=== PATIENT | male | born 1950 | race Caucasian/White ===

== ENCOUNTER 2017-06-03 23:32 | Emergency (ER) | payer OTHER ==
[2017-06-04 00:03] VITALS: TEMP 98.2; BMI 31.1
--- NOTE | 2017-06-04 00:59 | PDOC ---
History of Present Illness - General History Source: Patient Exam Limitations: No Limitations - History of Present Illness Initial Comments: 06/04/17 01:47 The patient is a 66 year old male, with no significant past medical history who presents to the emergency department with multiple complaints s/p fall today. Patient states he slipped and fell down 4 steps at [place]. Patient reports hitting his head and the L side of his body. Patient reports pain to L side of head, L trunk, L hip and L leg. Patient denies LOC, nausea or lightheadedness. Patient took 2 tylenols prior to arrival with no relief. Patient presents to the ED because his pain has progressively worsened. He denies chest pain, headache or dizziness. He denies fever, chills, abdominal pain, nausea, vomit, diarrhea or constipation. He denies dysuria, frequency, urgency or hematuria. Allergies: NKA Past surgical history: None Social history: None PCP: None <Berenice Galvan - Last Filed: 06/04/17 01:47> - General History Source: Patient, Family <Randy Mendoza - Last Filed: 06/04/17 02:56> - General Chief Complaint: Injury Stated Complaint: FALL INJURY Time Seen by Provider: 06/04/17 00:59 Past History <Berenice Galvan - Last Filed: 06/04/17 01:47> - Psycho/Social/Smoking Cessation Hx Suicidal Ideation: No Smoking History: Never smoked Have you smoked in the past 12 months: No Information on smoking cessation initiated: No Hx Alcohol Use: No Drug/Substance Use Hx: No <Randy Mendoza - Last Filed: 06/04/17 02:56> - Past Medical History Allergies/Adverse Reactions: Allergies Allergy/AdvReac Type Severity Reaction Status Date / Time No Known Allergies Allergy Verified 06/03/17 23:48 Home Medications: Ambulatory Orders Glipizide [Glipizide ER] 2 mg PO DAILY 06/04/17 Ibuprofen 800 mg PO TID #30 tablet 06/04/17 Metformin HCl [Glucophage] 1,000 mg PO BID 06/04/17 Methocarbamol [Robaxin -] 500 mg PO TID #30 tablet 06/04/17 Oxycodone HCl/Acetaminophen [Percocet 5-325 mg Tablet] 1 - 2 tab PO Q6H #20 tablet MDD 4 06/04/17 Review of Systems - Review of Systems Able to Perform ROS?: Yes Comments:: 06/04/17 01:47 GENERAL/CONSTITUTIONAL: No fever or chills. No weakness. HEAD, EYES, EARS, NOSE AND THROAT: No change in vision. No ear pain or discharge. No sore throat. GASTROINTESTINAL: No nausea, vomiting, diarrhea or constipation. GENITOURINARY: No dysuria, frequency, or change in urination. CARDIOVASCULAR: No chest pain or shortness of breath. RESPIRATORY: No cough, wheezing, or hemoptysis. MUSCULOSKELETAL: +L trunk, L hip and L leg. No joint or muscle swelling or pain. No neck or back pain. SKIN: No rash NEUROLOGIC: No headache, vertigo, loss of consciousness, or change in strength/ sensation. ENDOCRINE: No increased thirst. No abnormal weight change. HEMATOLOGIC/LYMPHATIC: No anemia, easy bleeding, or history of blood clots. ALLERGIC/IMMUNOLOGIC: No hives or skin allergy. <Berenice Galvan - Last Filed: 06/04/17 01:47> *Physical Exam - Vital Signs Last Vital Signs Temp Pulse Resp BP Pulse Ox 98.2 F 82 20 122/70 98 06/03/17 23:48 06/03/17 23:48 06/03/17 23:48 06/03/17 23:48 06/03/17 23:48 - Physical Exam Comments: 06/04/17 01:47 GENERAL: Awake, alert, and fully oriented, in no acute distress HEAD: No signs of trauma EYES: No raccoon eyes or arcos signs. PERRLA, EOMI, sclera anicteric, conjunctiva clear ENT: Auricles normal inspection, hearing grossly normal, nares patent, oropharynx clear without exudates. Moist mucosa NECK: Normal ROM, supple, no lymphadenopathy, JVD, or masses LUNGS: No flail chest. Breath sounds equal, clear to auscultation bilaterally. No wheezes, and no crackles HEART: Regular rate and rhythm, normal S1 and S2, no murmurs, rubs or gallops ABDOMEN: Soft, nontender, normoactive bowel sounds. No guarding, no rebound. No masses EXTREMITIES: Normal range of motion, no edema. No clubbing or cyanosis. No cords, erythema, or tenderness. No pelvic rock. No bony crepitus. No gross deformities of L leg. +Tender at the posterior and lateral L sided ribs. NEUROLOGICAL: Cranial nerves II through XII grossly intact. Normal speech, normal gait SKIN: Warm, Dry, normal turgor, no rashes or lesions noted. <Berenice Galvan - Last Filed: 06/04/17 01:47> - Vital Signs Last Vital Signs Temp Pulse Resp BP Pulse Ox 98.2 F 82 20 122/70 98 06/03/17 23:48 06/03/17 23:48 06/03/17 23:48 06/03/17 23:48 06/03/17 23:48 <Randy Mendoza - Last Filed: 06/04/17 02:56> ED Treatment Course - Medications Given in the ED: ED Medications Discontinued Medications Generic Name Dose Route Start Last Admin Trade Name Freq PRN Reason Stop Dose Admin Morphine Sulfate 6 mg 06/04/17 01:02 06/04/17 01:31 Morphine Injection - IM 06/04/17 01:03 6 mg ONCE ONE Administration <Berenice Galvan - Last Filed: 06/04/17 01:47> Medical Decision Making - Medical Decision Making 06/04/17 02:56 Dr. Mendoza: The scribe's documentation has been prepared under my direction and personally reviewed by me in its entirery. I confirm that the note above accurately reflects all work, treatment, procedures, and medical decision making performed by me. <Randy Mendoza - Last Filed: 06/04/17 02:56> *DC/Admit/Observation/Transfer - Attestations Scribe Attestion: 06/04/17 01:48 Documentation prepared by Berenice Galvan, acting as medical assistant cardiology for Randy Mendoza DO. <Berenice Galvan - Last Filed: 06/04/17 01:47> - Discharge Dispostion Admit: No <Randy Mendoza Last Filed: 06/04/17 02:56> Diagnosis at time of Disposition: Fall Qualifiers: Encounter type: initial encounter Qualified Code(s): W19.XXXA - Unspecified fall, initial encounter Rib fracture Qualifiers: Encounter type: initial encounter Rib fracture type: single rib Fracture type: closed Laterality: left Qualified Code(s): S22.32XA - Fracture of one rib, left side, initial encounter for closed fracture - Discharge Dispostion Disposition: HOME Condition at time of disposition: Stable - Prescriptions Prescriptions: Ibuprofen 800 mg PO TID #30 tablet Oxycodone HCl/Acetaminophen [Percocet 5-325 mg Tablet] 1 - 2 tab PO Q6H #20 tablet MDD 4 Methocarbamol [Robaxin -] 500 mg PO TID #30 tablet - Referrals Referrals: Jalyn Rodriguez MD [Staff Physician] - - Patient Instructions Printed Discharge Instructions: DI for Rib Fracture
[2017-06-04] MEDS ORDERED: morphine CARPU-JECT 2 MG/1 ML DISP.SYRIN IM ONE (01:02)
[2017-06-04] MEDS ORDERED: morphine CARPU-JECT 10 MG/1 ML DISP.SYRIN ONE (01:07)
[2017-06-04 03:05] VITALS: BP 121/70; PULSE 72
== END 2017-06-04 03:09 | disposition home or self-care (01) ==
LOC: JER 23:32
PROC: 3E023NZ Introduction of Analgesics, Hypnotics, Sedatives into Muscle, Percutaneous Approach (ICD-10-PCS; principal; 2017-06-03)
DX: S22.32XA Fracture of one rib, left side, initial encounter for closed fracture (principal); W10.9XXA Fall (on) (from) unspecified stairs and steps, initial encounter; Y93.89 Activity, other specified; Y92.22 Religious institution as the place of occurrence of the external cause
CPT/HCPCS: 70450-TC; 71250-TC; 72125-TC; 73523-TC; 73552-TC-LT; 73562-TC-LT; 99281-25